=== PATIENT | male | born 1960 | race Caucasian/White ===

== ENCOUNTER 2017-04-27 11:24 | Outpatient (CLI) | payer OTHER ==
--- NOTE | 2017-04-27 15:06 | RAD ---
LEFT KNEE FOUR VIEWS: History: Knee pain. FINDINGS: There are no signs of fracture, dislocation or joint effusion. There are some vascular calcifications noted. IMPRESSION: No evidence of acute injury. POS: [facility]
== END 2017-04-27 11:25 | disposition home or self-care (01) ==
LOC: SCSRAD 11:24
PROVIDERS: ATTEND Nurse Practitioner Family
DX: R20.9 Unspecified disturbances of skin sensation (principal)

== ENCOUNTER 2017-04-28 13:00 | Outpatient (CLI) | payer OTHER ==
--- NOTE | 2017-04-28 14:41 | ULT ---
ULTRASOUND WITH DOPPLER DUPLEX VENOUS LOWER EXTREMITY LEFT CPT: 59553 ICD-10-PCS: B54D HISTORY: Disturbance of skin sensation. TECHNIQUE: Color flow Doppler, spectral waveform analysis of pulsed Doppler, and oropeza-scale imaging with silvina fanny and augmentation, were used to evaluate the bilateral common femoral, femoral, popliteal, playground equipment erector ior tibial, and superficial femoral, veins; and the proximal portions of the profunda femoral and gre ater saphenous, veins. FINDINGS: Appropriate compressibility and flow within the imaged deep vein system left lower extremity. IMPRESSION: No deep vein thrombosis. POS: [facility]
--- NOTE | 2017-04-28 15:15 | ULT ---
ARTERIAL DOPPLER ULTRASOUND LEFT LOWER EXTREMITY: Date: 04/28/17 CLINICAL HISTORY: Sensation disturbance of left lower extremity. TECHNIQUE: Hill scale and Doppler color flow imaging with spectral analysis performed of the left lower extremit y arterial system. FINDINGS: Peak systolic velocity of the arterial system left lower extremity is located at the level of the sup erficial femoral, 94 cm/second. Evaluation of the Doppler waveforms reveals triphasic waveforms of the left thigh and left popliteal artery. Above the level of the left knee, there are triphasic waveforms demonstrated within the anterior tibi al artery, and biphasic waveforms are seen at the level of the posterior tibial and dorsalis pedis ar teries. There is a mild degree of scattered atherosclerotic plaque formation. 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 POS: [facility]
== END 2017-04-28 13:01 | disposition home or self-care (01) ==
LOC: ULT 13:00
PROVIDERS: ATTEND Nurse Practitioner Family
DX: R20.9 Unspecified disturbances of skin sensation (principal); I99.8 Other disorder of circulatory system
CPT/HCPCS: 93923